=== PATIENT | female | born 1990 | race Caucasian/White ===

== ENCOUNTER 2016-05-24 15:27 | Emergency (ER) | payer OTHER | END 2016-05-24 17:23 | disposition home or self-care (01) | LOC: ER 15:27 | DX: B37.3 Candidiasis of vulva and vagina (principal); B96.89 Other specified bacterial agents as the cause of diseases classified elsewhere; F11.21 Opioid dependence, in remission; F17.210 Nicotine dependence, cigarettes, uncomplicated | CPT/HCPCS: 96372; 99283-25 ==